=== PATIENT | female | born 1980 | race Two or more races ===

== ENCOUNTER → 2016-08-14 | Outpatient (CLI) | payer OTHER ==
--- NOTE | 2016-08-24 23:15 | SLEEP ---
DATE OF STUDY: 08/14/2016 REFERRING DOCTOR: MIGUEL Wong OBJECTIVE: The patient is a 36-year-old female with snoring, excessive daytime somnolence, difficulty falling asleep, observed apnea. Height 5 feet 2 inches, weight 160 pounds, BMI 30, Patton sleep score 20. INTERPRETATION: Sleep architecture is characterized by a sleep efficiency of 79% across the seven hours of recording time. Stage volumes are normal for age. Sleep onset latency is 1.5 minutes. A total of 69 respiratory events are captured for an apnea-hypopnea index of 12.5 events per hour of sleep. The minimum oxygen saturation is 80%. The patient is started on treatment and the effects of control of her apnea is obtained on a CPAP setting of 7 cm using a Respironics true blue nasal mask, small size. Periodic limb movements of sleep occur at the rate of 24 per hour, 2 per hour associated with arousal. No cardiac arrhythmias are seen. IMPRESSION: Abnormal polysomnogram showing obstructive sleep apnea and hypopnea treatable on CPAP. RECOMMENDATIONS: 1. We recommend the above CPAP settings. 2. The patient should also pursue weight loss and avoid sedatives and alcohol. Thank you for letting us help with the patient's care. MOSHE KING MD DR: NIA/giselle JOB#: [id number] / [id number]
== END | disposition home or self-care (01) ==
LOC: RT 18:18
PROVIDERS: ATTEND Physician Assistant Medical
DX: R06.83 Snoring (principal); G47.33 Obstructive sleep apnea (adult) (pediatric)
CPT/HCPCS: 95810